=== PATIENT | female | born 1975 | race Caucasian/White ===

== ENCOUNTER 2017-02-08 11:54 | Emergency (ER) | payer SELFPAY ==
[~2017-02-08] VITALS: Ht 175.3 cm; Wt 81.6 kg
[2017-02-08] MEDS ORDERED: IV NORMAL SALINE 1000ML BAG 1,000 ML IV SCH (12:29)
[2017-02-08] MEDS ORDERED: ONDANSETRON PF 4 MG/2 ML VIAL. IV ONE (12:30)
[2017-02-08] MEDS: HYDROmorphone 2 MG/ML VIAL IV/SQ PRN ×2 (12:40→13:43)
--- NOTE | 2017-02-08 12:41 | PHYS DOC ---
Past Medical History Past Medical History: No Pertinent History Past Surgical History: Hysterectomy Additional Past Surgical Histo: LEFT JAW - METAL PLATE Additional Information: PPD Alcohol Use: None Drug Use: None Adult General Chief Complaint Chief Complaint: FLANK PAIN HPI HPI Patient is a 41 year old female ambulatory to the ED with the complaint of right-sided back and right mid abdominal pain which began this morning. 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 It got more severe and came to the right front mid abdomen and was associated with vomiting about 2 hours ago. She was brought to the ED by coworkers. Patient has had a kidney stone once about 15 years ago, she had lithotripsy. She lived in [place] at the time. She thinks this feels a little bit like that. She does admit to recent urinary frequency, no dysuria. Denies fever or chills. Never had any gallbladder problems. Patient has had a hysterectomy. No menstrual periods. PCP none. She is a smoker. She denies alcohol or drugs. Review of Systems Review of Systems Constitutional: Denies fever or chills [] Eyes: Denies change in visual acuity, redness, or eye pain [] HENT: Denies nasal congestion or sore throat [] Respiratory: Denies cough or shortness of breath [] Cardiovascular: Denies chest pain GI: As in history of present illness : As in history of present illness Musculoskeletal: As in history of present illness Integument: Denies rash or skin lesions [] Neurologic: Denies headache, focal weakness or sensory changes [] Current Medications Current Medications Current Medications Medications (Trade) Dose Ordered Sig/Flaca Start Time Stop Time Status Last Admin Dose Admin Hydromorphone HCl (Dilaudid) 1 mg PRN Q15MIN PRN 02/08/17 12:30 02/08/17 14:26 DC 02/08/17 13:43 1 MG Ondansetron HCl (Zofran) 4 mg 1X ONCE 02/08/17 12:30 02/08/17 12:32 DC 02/08/17 12:39 4 MG Sodium Chloride 1,000 ml @ 1,000 mls/hr Q1H 02/08/17 12:29 02/08/17 13:28 DC 02/08/17 12:38 1,000 MLS/HR Allergies Allergies Allergies Coded Allergies Type Severity Reaction Last Updated Verified shrimp Allergy Unknown 02/08/17 Yes Physical Exam Physical Exam Constitutional: Well developed, well nourished, appears uncomfortable, appears colicky, alert, mentating normally HENT: Normocephalic, atraumatic, bilateral external ears normal, nose normal. [] Eyes: conjunctiva normal, no discharge. [] Neck: Normal range of motion, no stridor. [] Cardiovascular:Heart rate regular rhythm, no murmur [] Lungs & Thorax: Bilateral breath sounds clear to auscultation [] Abdomen: Bowel sounds normal, soft, nondistended, no masses, no pulsatile masses. Negative Collins's. Liver, gallbladder not palpable and nontender. Mild tenderness to palpation in the mid and lower right abdomen, no rebound or guarding. Skin: Warm, dry, no erythema, no rash. [] Back: No tenderness, no CVA tenderness. No overlying skin abnormalities in the right back. Extremities: No tenderness, no cyanosis, no clubbing, ROM intact, no edema. [] Neurologic: Alert and oriented X 3, normal motor function, normal sensory function, no focal deficits noted. [] Current Patient Data Vital Signs Vital Signs Date Time Temp Pulse Resp B/P (MAP) Pulse Ox O2 Delivery O2 Flow Rate FiO2 02/08/17 14:00 66 137/74 (95) 02/08/17 13:43 26 99 Room Air 02/08/17 11:59 98.2 98.2 Lab Values Laboratory Tests Test 02/08/17 11:59 02/08/17 13:15 Urine Collection Type Void Urine Color Yellow Urine Clarity Clear Urine pH 5.5 Urine Specific [place] 1.025 Urine Protein Negative mg/dL (NEG-TRACE) Urine Glucose (UA) Negative mg/dL (NEG) Urine Ketones (Stick) Negative mg/dL (NEG) Urine Blood Large (NEG) Urine Nitrite Negative (NEG) Urine Bilirubin Negative (NEG) Urine Urobilinogen Dipstick 0.2 mg/dL (0.2 mg/dL) Urine Leukocyte Esterase Trace (NEG) Urine RBC >40 /HPF (0-2) Urine WBC Occ /HPF (0-4) Urine Squamous Epithelial Cells Occ /LPF Urine Bacteria 0 /HPF (0-FEW) Urine Mucus Mod /LPF Urine Opiates Screen Pos (NEG) Urine Methadone Screen Neg (NEG) Urine Barbiturates Neg (NEG) Urine Phencyclidine Screen Neg (NEG) Urine Amphetamine/Methamphetamine Neg (NEG) Urine Benzodiazepines Screen Neg (NEG) Urine Cocaine Screen Neg (NEG) Urine Cannabinoids Screen Neg (NEG) Urine Ethyl Alcohol Neg (NEG) White Blood Count 7.8 x10^3/uL (4.0-11.0) Red Blood Count 4.15 x10^6/uL (3.50-5.40) Hemoglobin 13.3 g/dL (12.0-15.5) Hematocrit 39.1 % (36.0-47.0) Mean Corpuscular Volume 94 fL (79-100) Mean Corpuscular Hemoglobin 32 pg (25-35) Mean Corpuscular Hemoglobin Concent 34 g/dL (31-37) Red Cell Distribution Width 12.4 % (11.5-14.5) Platelet Count 222 x10^3/uL (140-400) Neutrophils (%) (Auto) 61 % (31-73) Lymphocytes (%) (Auto) 26 % (24-48) Monocytes (%) (Auto) 9 % (0-9) Eosinophils (%) (Auto) 3 % (0-3) Basophils (%) (Auto) 1 % (0-3) Neutrophils # (Auto) 4.8 x10^3uL (1.8-7.7) Lymphocytes # (Auto) 2.0 x10^3/uL (1.0-4.8) Monocytes # (Auto) 0.7 x10^3/uL (0.0-1.1) Eosinophils # (Auto) 0.2 x10^3/uL (0.0-0.7) Basophils # (Auto) 0.1 x10^3/uL (0.0-0.2) Sodium Level 142 mmol/L (136-145) Potassium Level 3.9 mmol/L (3.5-5.1) Chloride Level 103 mmol/L (98-107) Carbon Dioxide Level 32 mmol/L (21-32) Anion Gap 7 (6-14) Blood Urea Nitrogen 17 mg/dL (7-20) Creatinine 0.7 mg/dL (0.6-1.0) Estimated GFR (Cockcroft-Gault) 92.7 BUN/Creatinine Ratio 24 (6-20) H Glucose Level 96 mg/dL (70-99) Calcium Level 8.9 mg/dL (8.5-10.1) Total Bilirubin 0.4 mg/dL (0.2-1.0) Aspartate Amino Transferase (AST) 19 U/L (15-37) Alanine Aminotransferase (ALT) 21 U/L (14-59) Alkaline Phosphatase 76 U/L (46-116) Total Protein 7.0 g/dL (6.4-8.2) Albumin 3.8 g/dL (3.4-5.0) Albumin/Globulin Ratio 1.2 (1.0-1.7) Lipase 85 U/L (73-393) Laboratory Tests 02/08/17 13:15 Laboratory Tests 02/08/17 13:15 EKG EKG [] Radiology/Procedures Radiology/Procedures CT scan of the abdomen and pelvis read by the radiologist. Small intrarenal stones on the right but no right ureter stone, no evidence of recent stone, no hydro-. [] Course & Med Decision Making Course & Med Decision Making Pertinent Labs and Imaging studies reviewed. (See chart for details) 41-year-old female with right flank and right-sided abdominal pain which seems colicky and suspicious for ureteral colic. I discussed with the patient we will give her IV pain and nausea medication and get a CT scan, she is agreeable to that plan. CT scan unrevealing as to the source of pain, negative for any right ureter stone or other ureter abnormality. After IV pain medications and IV fluids, the patient continued to seemingly have a relatively dramatic right flank pain. She did not get the type of relief I would've expected from the IV pain medications administered. However, when I returned to discuss the case with the patient, she was able to calm down and discuss her concerns attentively without apparent colicky symptoms. Patient's urine drug screen is positive for opiates. She had originally denied any pain medication including any opiates. When I ask her about this, she stated that her coworker had given her one of his [place] pills earlier this morning. I discussed with the patient the reassuringly normal CT scan and advised NSAIDs , plenty of fluids, follow-up with primary care if not improving. See instructions for plan. [] Dragon Disclaimer Dragon Disclaimer This electronic medical record was generated, in whole or in part, using a voice recognition dictation system. Departure Departure Impression: Primary Impression: Acute right flank pain Additional Impression: Hematuria Disposition: 01 HOME, SELF-CARE Condition: STABLE Patient Instructions: Flank Pain, [id number] Additional Instructions: Today, the CT scan did show small kidney stones in your kidney but no stone was seen in your ureter. It may have passed through to your bladder or it may be too small to see in your ureter. In any case, there is no evidence of obstruction in your ureter, and if there is still a stone, it should pass on its own. Drink plenty of fluids. Your urine was concentrated. We want your urine to be light yellow like the color of lemonade. Ibuprofen 800 mg every 8 hours until better. (4 of the OTC 200 mg pills) If not better in 3-5 days, follow-up with primary care physician. If you have fever 100.4 or higher, or worse pain, return to emergency. Problem Qualifiers SUNITHA BUTLER MD Feb 08, 2017 12:41
[2017-02-08 12:50] LABS: BILIRUBIN,URINE NEGATIVE (NEG); GLUCOSE,URINE NEGATIVE (NEG); NITRITE,URINE NEGATIVE (NEG); PH,URINE 5.5; PROTEIN,URINE NEGATIVE (NEG-TRACE); UROBILINOGEN,URINE 0.2 mg/dL (0.2 mg/dL)
[2017-02-08 12:59] LABS: BARBITURATES NEG (NEG); BENZODIAZEPINES NEG (NEG); CANNABINOIDS NEG (NEG); COCAINE NEG (NEG); METHADONE NEG (NEG); OPIATES POS (NEG); PHENCYCLIDINE NEG (NEG)
--- NOTE | 2017-02-08 13:03 | RAD ---
CT of the abdomen and pelvis without contrast, 02/08/2017: History: Right flank pain Noncontrast scans were obtained through the urinary tract utilizing the renal stone protocol. This is a limited study for evaluation of the possibility of urinary tract calculi. There are several tiny right renal calcifications compatible with nonobstructing calculi. The largest of these measures approximately 5 mm. No left renal calculi are evident. The renal collecting systems and ureters are not dilated. The ureters cannot be clearly traced through the pelvis, however, there is no evidence of a ureteral calculus. The partially filled urinary bladder is unremarkable. The unopacified liver shows no abnormality. No gallstones are seen. The pancreas is unremarkable. The spleen is of normal size. The abdominal aorta is unremarkable. No abdominal or pelvic adenopathy is seen. The uterus is surgically absent. The bowel loops are not dilated. There is a moderate amount of stool in the right colon. The appendix is visualized and shows no abnormality. No free fluid or free air is evident in the abdomen or pelvis. IMPRESSION: 1. Multiple small nonobstructing right intrarenal calculi. 2. No obstructing urinary tract calculus is identified. PQRS Compliance Statement: One or more of the following individualized dose reduction techniques were utilized for this examination: 1. Automated exposure control 2. Adjustment of the mA and/or kV according to patient size 3. Use of iterative reconstruction technique
[2017-02-08 13:15] LABS: BACTERIA,URINE 0 /HPF (0-FEW); RBC,URINE >40 /HPF (0-2); SQUAMOUS EPITHELIAL CELL,UR OCC /LPF; WBC,URINE OCC /HPF (0-4)
[2017-02-08 13:28] LABS: BASO # 0.1 x10^3/uL (0.0-0.2); BASO % 1 % (0-3); EOS % 3 % (0-3); HEMATOCRIT 39.1 % (36.0-47.0); HEMOGLOBIN 13.3 g/dL (12.0-15.5); LYMPH % 26 % (24-48); MEAN CORPUSCULAR HEMOGLOBIN 32 pg (25-35); MEAN CORPUSCULAR HGB CONC 34 g/dL (31-37); MEAN CORPUSCULAR VOLUME 94 fL (79-100); MONO % 9 % (0-9); NEUT % 61 % (31-73); PLATELET COUNT 222 x10^3/uL (140-400); RED BLOOD COUNT 4.15 x10^6/uL (3.50-5.40); RED CELL DISTRIBUTION WIDTH 12.4 % (11.5-14.5); WHITE BLOOD COUNT 7.8 x10^3/uL (4.0-11.0)
[2017-02-08 13:45] LABS: CALCIUM 8.9 mg/dL (8.5-10.1); CREATININE 0.7 mg/dL (0.6-1.0); GFR 92.7; POTASSIUM 3.9 mmol/L (3.5-5.1)
[2017-02-08 13:51] LABS: ALBUMIN 3.8 g/dL (3.4-5.0); ALBUMIN/GLOBULIN RATIO 1.2 (1.0-1.7); TOTAL BILIRUBIN 0.4 mg/dL (0.2-1.0)
[2017-02-08 14:00] VITALS: BP 137/74
== END 2017-02-08 14:25 | disposition home or self-care (01) ==
LOC: ER 11:54
DX: R31.9 Hematuria, unspecified (principal); R10.9 Unspecified abdominal pain; M54.9 Dorsalgia, unspecified; R11.10 Vomiting, unspecified; Z87.442 Personal history of urinary calculi; F17.200 Nicotine dependence, unspecified, uncomplicated; Z90.710 Acquired absence of both cervix and uterus; Z91.013 Allergy to seafood
CPT/HCPCS: 36415; 74176; 80053; 80305; 80320; 81001; 83690; 85027; 87086; 96361; 96374; 96375; 96376; 99285; J1170; J2405; J7030; G0481